=== PATIENT | male | born 1990 | race African-American/Black ===

== ENCOUNTER 2019-09-22 17:02 | Emergency (ER) | payer MEDICAID ==
[~2019-09-22] VITALS: Ht 177.8 cm; Wt 97.5 kg
[2019-09-22 17:17] VITALS: BP 151/90
== END 2019-09-22 19:27 | disposition home or self-care (01) ==
LOC: ER 17:02
DX: S43.402A Unspecified sprain of left shoulder joint, initial encounter (principal); M62.830 Muscle spasm of back; V43.62XA Car passenger injured in collision with other type car in traffic accident, initial encounter; Y93.89 Activity, other specified; Y92.488 Other paved roadways as the place of occurrence of the external cause; Y99.8 Other external cause status
CPT/HCPCS: 72100; 73030